=== PATIENT | female | born 1955 | race Caucasian/White ===

== ENCOUNTER 2019-08-06 13:08 | Inpatient (IN) | payer BC ==
[~2019-08-06] VITALS: Ht 188 cm; Wt 61.3 kg
[2019-08-06] MEDS ORDERED: GABA-531 PO (17:42)
[2019-08-06] MEDS ORDERED: SERT100T12 PO (17:42)
[2019-08-06] MEDS ORDERED: LORazepam 2 MG TABLET PO PRN (17:45)
[2019-08-06] MEDS ORDERED: ZOLPIDEM TARTRATE 10 MG TABLET PO PRN (17:45)
[2019-08-06] MEDS ORDERED: HALOPERIDOL 5 MG TABLET PO PRN (17:45)
[2019-08-06] MEDS ORDERED: INFLUENZA VIRUS VACCINE QVS 2019-20 (3YR+)/PF 60 MCG/0.5 ML SYRINGE IM ONE (19:00)
[2019-08-06 19:15] VITALS: BP 155/104
[2019-08-06] MEDS ORDERED: IBUPROFEN 600 MG TABLET PO PRN (19:45)
[2019-08-06] MEDS ORDERED: CloNIDine HCL 0.1 MG TABLET PO PRN (19:45)
[2019-08-06 21:26] VITALS: BP 152/74
[2019-08-06 22:36] VITALS: BP 51/78
[2019-08-06] MEDS: ACETAMINOPHEN 325 MG TABLET PO PRN (22:36)
[2019-08-06] MEDS: AMOX TR/POT CLAV 875 MG/125 MG TABLET PO SCH (23:31)
[2019-08-07 05:26] VITALS: BP 148/86
[2019-08-07 07:58] LABS: BASOPHILS % (AUTO) 0.6 % (0.0-2.0); EOSINOPHILS % (AUTO) 10.2 % (1.0-6.0); HEMATOCRIT 41.1 % (36-46); LYMPHOCYTES # (AUTO) 1.1 K/uL (1.0-4.8); LYMPHOCYTES % (AUTO) 23.6 % (22.0-44.0); MEAN CORPUSCULAR HEMOGLOBIN 30.5 pg (26.0-34.0); MEAN CORPUSCULAR HGB CONC 34.1 G/dL (31.0-37.0); MEAN CORPUSCULAR VOLUME 90 fL (80-100); MONOCYTES # (AUTO) 0.3 K/uL (0.1-1.0); MONOCYTES % (AUTO) 6.6 % (2.0-9.0); NEUTROPHILS # (AUTO) 2.8 K/uL (1.8-7.7); PLATELET COUNT (AUTO) 221 K/uL (150-450); RED BLOOD CELL COUNT(AUTO) 4.59 MIL/uL (4.00-5.20)
[2019-08-07] MEDS: AmLODIPine BESYLATE 5 MG TABLET PO SCH (08:18)
[2019-08-07] MEDS: AMOX TR/POT CLAV 875 MG/125 MG TABLET PO SCH ×2 (08:18→20:07)
[2019-08-07 08:23] VITALS: BP 125/92
[2019-08-07 08:37] LABS: ALANINE AMINOTRANSFERASE 18 U/L (12-78); ALBUMIN 3.8 g/dL (3.4-5.0); ALKALINE PHOSPHATASE 97 U/L (46-116); ANION GAP 13 mmol/L (8-16); ASPARTATE AMINOTRANSFERASE 34 U/L (15-37); BILIRUBIN,TOTAL 0.7 mg/dL (0.1-1.0); CALCIUM, TOTAL 9.7 mg/dL (8.8-10.5); CARBON DIOXIDE 23 mmol/L (22-29); CHLORIDE 102 mmol/L (98-107); CHOL/HDL RATIO 5.1 (3.9-5.7); CHOLESTEROL 301 mg/dL (131-200); FREE T4 (FREE THYROXINE) 0.79 ng/dL (0.76-1.46); GLOMERULAR FILTR. RATE CALC > 60 mL/min (>60); GLUCOSE,RANDOM 109 mg/dL (70-110); HDL CHOLESTEROL 59 mg/dL (40-60); LDL CHOL (CALC.) 210 mg/dL (0-130); POTASSIUM 3.7 mmol/L (3.5-5.1); SODIUM SERUM 138 mmol/L (136-145); TOTAL PROTEIN, SERUM 7.8 g/dL (6.4-8.2); TRIGLYCERIDES 159 mg/dL (15-150); UREA NITROGEN, BLOOD 12 mg/dL (7-18)
[2019-08-07 09:52] LABS: HEMOGLOBIN A1C 5.3 % (4.5-6.2)
[2019-08-07 15:15] VITALS: BP 130/85
[2019-08-07] MEDS: ACETAMINOPHEN 325 MG TABLET PO PRN (15:15)
[2019-08-07 16:11] VITALS: BP 147/95
[2019-08-07 20:07] VITALS: BP 135/85
[2019-08-08 07:14] VITALS: BP 128/80
[2019-08-08] MEDS: AmLODIPine BESYLATE 5 MG TABLET PO SCH (08:36)
[2019-08-08] MEDS: AMOX TR/POT CLAV 875 MG/125 MG TABLET PO SCH (08:36)
[2019-08-08 08:50] VITALS: BP 177/108
[2019-08-08] MEDS ORDERED: OMEGA-3/DHA/EPA/FISH OIL 1,000 MG CAPSULE PO SCH (09:00)
[2019-08-08 11:00] VITALS: BP 154/100
[2019-08-08] MEDS: ACETAMINOPHEN 325 MG TABLET PO PRN (11:20)
[2019-08-08] MEDS ORDERED: OMEG-135 PO (11:24)
[2019-08-08] MEDS ORDERED: AMLO5TAB9 PO (11:24)
[2019-08-08] MEDS ORDERED: AMOX1TAB16 PO (11:24)
[2019-08-08 12:20] VITALS: BP 140/85
== END 2019-08-08 12:55 | disposition home or self-care (01) | DRG 885 ==
LOC: B2X 17:51
PROVIDERS: ADMIT Psychiatry & Neurology Psychiatry; ATTEND Psychiatry & Neurology Psychiatry
DX: F33.2 Major depressive disorder, recurrent severe without psychotic features (principal); R45.851 Suicidal ideations; G43.909 Migraine, unspecified, not intractable, without status migrainosus; I10 Essential (primary) hypertension; K02.9 Dental caries, unspecified; F41.9 Anxiety disorder, unspecified
CPT/HCPCS: 80074; 83036; 84439; 84443